=== PATIENT | female | born 1955 | race Caucasian/White ===

== ENCOUNTER 2021-03-26 09:40 | Outpatient (REF) | payer MEDICARE, MEDICAID, SELFPAY ==
--- NOTE | ~2021-03-26 | MM_ITS ---
EXAMINATION: MM SCREENING DIGITAL BREAST TOMOSYNTHESIS, BILATERAL CLINICAL INFORMATION: Screening. Asymptomatic. The lifetime risk of breast cancer based on the Tyrer-Cuzick Model is 5%. COMPARISON: Mammography: 08/11/2018, 07/10/2017, 04/21/2016 TECHNIQUE: Digital breast tomosynthesis is performed in both the craniocaudal and mediolateral oblique views along with computer-aided detection (CAD). Synthesized 2D images are generated from the tomosynthesis. Additional left CC view is provided. FINDINGS: There are scattered areas of fibroglandular density (ACR BI-RADS breast composition Category b). There are no significant masses, abnormal calcifications, or other abnormalities. Breast tissue composition borders on predominantly fatty. Background stromal markings and scattered benign round and rim calcifications are stable. The axilla are stable. Skin contours are smooth. No significant changes. MM/MM tomosynthesis screening BI IMPRESSION: No mammographic evidence of malignancy. ASSESSMENT: BI-RADS 2: Benign RECOMMENDATION: Routine annual mammography screening. This patient's information was entered into a reminder system with a target due date for their next mammogram.
== END 2021-03-26 09:41 | disposition home or self-care (01) ==
LOC: HO.MAMMO 09:40
PROVIDERS: PCP Internal Medicine; Visit Provider Internal Medicine
DX: Z12.31 Encounter for screening mammogram for malignant neoplasm of breast (principal)
CPT/HCPCS: 77063; 77067

== ENCOUNTER 2023-07-23 11:09 | Emergency (ER) | payer MEDICARE, MEDICAID, SELFPAY ==
--- NOTE | ~2023-07-23 | XR_ITS ---
EXAMINATION: XR CHEST 2 VIEW CLINICAL INFORMATION: Cough, shortness of breath, congestion COMPARISON: 10/12/2019 TECHNIQUE: PA and lateral views of the chest obtained. FINDINGS: Haziness at the right lung base is new since the prior study and likely reflects a small to moderate right pleural effusion and superimposed right base atelectasis or pneumonia. The left lung is clear. The cardiomediastinal silhouette is nonenlarged. XR/XR chest 2V IMPRESSION: Right pleural effusion and right base atelectasis or pneumonia. Follow-up is recommended to confirm clearing.
[2023-07-23 11:37] VITALS: BP 152/59; PULSE 74; RESP 20; TEMP 37.3; O2SAT 95; BMI 42.9
--- NOTE | 2023-07-23 11:37 | ED.GENADULT ---
HPI - General Adult General Chief complaint: General Medical Stated complaint: fever bs high Time Seen by Provider: 07/23/23 14:06 Source: patient Mode of arrival: ambulatory Limitations: no limitations History of Present Illness HPI narrative: Patient comes to the emergency room complaining of couple of days of coughing. Patient does have oxygen at home, usually uses oxygen as needed and at bedtime with her CPAP. Patient denies any fever. Patient states that when she wears her oxygen, shortness of breath resolves and feels better. However, patient still coughing quite a bit. Related Data Previous Rx's Medication Instructions Recorded levofloxacin 500 mg tablet 500 mg PO DAILY #9 tabs 07/23/23 prednisone 50 mg tablet 50 mg PO DAILY #4 tabs 07/23/23 Allergies Allergy/AdvReac Type Severity Reaction Status Date / Time oxycodone [OXYCODONE] AdvReac Unknown VOMITING Unverified 08/02/20 14:40 Pt states no known allergy to Allergy Unknown Uncoded 09/22/17 00:00 Review of Systems Review of Systems: Constitutional : No Weight loss, No Fever, No Chills, No Night Sweats, No Fatigue, No Malaise ENT/Mouth : No Hearing loss, No Ear Pain, No Nasal Congestion, No Sinus Pain, No Hoarseness, No sore throat, No Rhinorrhea, No Swallowing Difficulty Eyes: No Eye Pain, No Swelling, No Redness, No Foreign Body, No Discharge, No Vision Changes Cardiovascular : No Chest Pain, No SOB, No Dyspnea on Exertion, No Orthopnea, No Edema, No Palpitations Respiratory : complaining of cough, mild sputum production, chronic wheezing Gastrointestinal : No Nausea, No Vomiting, No Diarrhea, No Constipation, No abdominal Pain, No Hematochezia, No Melena Genitourinary : no irregular bleeding, No Dysuria, No Urinary Frequency, No Hematuria, No Urinary Incontinence, No Urgency, No Flank Pain, No Urinary Flow Changes, No Hesitancy Musculoskeletal : No joint pain, No Myalgias, No Joint Swelling Skin : No Skin Lesions, No rash Neuro : No Weakness, No Numbness, No Paresthesias, No Loss of Consciousness, No Dizziness, No Headache Psych : No Anxiety/Panic, No Depression, No SI/HI/AH/VH, No Social Issues, Heme/Lymph: No Bruising, No Bleeding,No Lymphadenopathy Endocrine : No Polyuria, No Polydipsia, No Temperature Intolerance [facility] Past Medical History Medical History (Updated 07/24/23 @ 00:01 by Background Babita) COPD with asthma Physical Exam ED Vital Signs: Vital Signs - 24 hr 07/23/23 11:37 07/23/23 14:08 Temperature 99.1 F 98.8 F Pulse Rate 74 75 Respiratory Rate 20 14 Blood Pressure 152/59 H 152/77 H Pulse Oximetry 95 4 L Oxygen Delivery Method Nasal Cannula Nasal Cannula BMI result Body Mass Index 42.9 HENOH Other: Appearance: Alert. Oriented X3. No acute distress. Eyes: Pupils equal, round and reactive to light. ENT: Pharynx normal. Neck: Normal inspection. Neck supple. No lymph nodes noted. No crepitus CVS: Normal heart rate and rhythm. Pulses normal. Normal S1 and S2 Respiratory: No respiratory distress, speaking full sentences, occasional coughing, mild bilateral wheezing with good air movement, oxygen saturation 96% on 3 L Abdomen: Soft and nontender. No rigidity. No distention. Skin: Skin warm and dry. Normal skin color. Normal skin turgor. Extremities: No lower extremity edema. No Lacerations. No Rash Neuro: Oriented X 3. No motor deficit. No sensory deficit. Moving all extremities. No slurred speech. CN 2 through 12 grossly intact Psych: calm, cooperative, normal affect Course Course Course Narrative: KANDY 11:40am 68yoF with a PMHx of COPD on 3L NC oxygen who is presenting to the ED with c/o of fevers up to 102.7, sweats, coughs with sputum, elevated glucose levels above 200, urine is concentrated since Thursday continues to worsen. Reports her ex daughter in-law who still lives with her has similar symptoms although her symptoms have improved. 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 Denies any recent travel. On exam patient is alert oriented x3. Still on her 3 L of nasal cannula oxygen. Otherwise all other vitals are within normal limits. Lungs clear to auscultation just diminished. No wheezes rales or rhonchi. No lower extremity edema or calf tenderness. Patient stable to go back to the waiting room to be even the ED. Plan: Labs, chest x-ray, COVID/RSV/flu swab ordered at this time. Medications Administered Discontinued Medications Generic Name Dose Route Start Last Admin Trade Name Masha PRN Reason Stop Dose Admin Levofloxacin 500 mg 07/23/23 14:19 07/23/23 14:34 Levofloxacin 500 Mg Tablet PO 07/23/23 14:20 500 mg ONCE ONE Administration Prednisone 60 mg 07/23/23 14:19 07/23/23 14:34 Prednisone 20 Mg Tablet PO 07/23/23 14:20 60 mg ONCE ONE Administration Medical Decision Making Medical Decision Making [facility] Narrative: -I discussed the labs with the patient, patient's blood cell count 14.3, likely secondary to pneumonia, -my interpretation of chest x-ray: Atelectasis versus pneumonia versus small pleural effusion in the right lower lobe. Given the patient's symptoms, we will go ahead and treat as pneumonia. Sepsis not suspected. -the emergency room, patient given 1st dose of prednisone and Levaquin -patient's lab stable. Patient feeling well, discussed with the patient admission to the hospital versus discharge. Patient want to go home, has oxygen there, states that if anything changes or worsens, she will return to the emergency room. -discussed with the patient that she will be on prednisone and her glucose will be higher for the next few days Differential Diagnosis Differential Diagnoses: The differential diagnosis associated with the presentation includes (Asthma, chronic lung disease, pleural effusion, atelectasis) Admission/Observation Consideration of admission/observation: Escalation of care including admission/observation considered Lab Data [facility] Lab Attestation statement: I reviewed the patient's lab results. 07/23/23 11:50 07/23/23 11:50 Labs: Lab Results 07/23/23 Range/Units 11:50 WBC 14.3 H (4.8-10.8) X10*3/uL RBC 3.82 L (4.20-5.50) X10*6/uL Hgb 11.4 L (12.0-16.0) g/dl Hct 35.3 L (37.0-47.0) % MCV 92.4 (80.0-98.0) fL MCH 29.8 (27.0-33.0) pg MCHC 32.3 (31.0-35.0) g/dl RDW 12.6 (11.0-16.0) % Plt Count 401 H (160-400) X10*3/uL MPV 9.8 (9.4-12.3) fL Immature Gran % (Auto) 2.2 H (0.0-0.4) % Neut % (Auto) 71.3 (45-73) % Lymph % (Auto) 17.1 L (20-40) % Bullock % (Auto) 7.1 (2-11) % Eos % (Auto) 1.7 (0-4) % Baso % (Auto) 0.6 (0-2) % Lymph # (Auto) 2.4 (1.2-4.9) X10*3/uL Bullock # (Auto) 1.0 (0.1-1.2) X10*3/uL Eos # (Auto) 0.2 (0.0-0.4) X10*3/uL Baso # (Auto) 0.1 (0.0-0.2) X10*3/uL Abs Immat Gran (auto) 0.32 H (0.00-0.03) X10*3/uL Absolute Neuts (auto) 10.2 H (2.0-8.3) x10*3/uL Absolute Nucleated RBC 0.000 (0.0-0.012) X10*3/uL Nucleated RBC % (auto) 0.0 (0.0-0.2) /100WBC Sodium 137 (135-145) mmol/L Potassium 3.5 (3.3-5.1) mmol/L Chloride 100 (96-108) mmol/L Carbon Dioxide 31 H (22-29) mmol/L Anion Gap 10 L (12-20) BUN 8 L (9-16) mg/dL Creatinine 0.65 (0.5-1.4) mg/dL Estim Creat Clear Calc 103.6 Estimated GFR > 60 Random Glucose 117 H (60-115) mg/dL Calcium 9.9 (8.4-10.2) mg/dL Magnesium 1.9 (1.6-2.6) mg/dL Total Bilirubin 0.4 (0.0-1.0) mg/dL AST 27 (5-31) U/L ALT 50 H (0-31) U/L Alkaline Phosphatase 156 H (39-117) U/L B-Natriuretic Peptide 41 (<100) pg/mL Total Protein 7.2 (6.5-8.0) g/dL Albumin 3.5 (3.5-5.0) g/dL Influenza Type A (PCR) NEGATIVE (Negative) Influenza Type B (PCR) NEGATIVE (Negative) RSV RNA Qual (PCR) NEGATIVE (Negative) SARS-CoV-2 RNA (RT-PCR) NEGATIVE (Negative) Independent Interpretation I performed an independent interpretation of an: Plain X-Ray Radiology Impression Discussion of test interpretation with radiology: I have reviewed the radiologist's reading. Radiologist Impression: FINDINGS: Haziness at the right lung base is new since the prior study and likely reflects a small to moderate right pleural effusion and superimposed right base atelectasis or pneumonia. The left lung is clear. The cardiomediastinal silhouette is nonenlarged. XR/XR chest 2V IMPRESSION: Right pleural effusion and right base atelectasis or pneumonia. Follow-up is recommended to confirm clearing. Critical Care Time Critical Care Time Critical Care Time: Yes Total Critical Care Time: 45 Attestation: I have personally provided critical care time. Time includes review of lab data, radiology results, discussion with consultants, and monitoring for potential decompensation. Intervention performed as documented. Discharge Plan Discharge Clinical Impression: Pneumonia Patient Disposition: Home, Self-Care Instructions: Pneumonia (ED) Prescriptions: New levofloxacin 500 mg tablet 500 mg PO DAILY Qty: 9 0RF prednisone 50 mg tablet 50 mg PO DAILY Qty: 4 0RF Interventions: ED Discharge Assessment Last Done: 07/23/23 14:37 Discharge Date/Time: 07/23/23 14:38
[2023-07-23 11:59] LABS: MANUAL DIFF FLAG NO
[2023-07-23 12:09] LABS: Basophils Absolute Auto 0.1 X10*3/uL (0.0-0.2); Basophils Percent Auto 0.6 % (0-2); Eosinophils Absolute Auto 0.2 X10*3/uL (0.0-0.4); Eosinophils Percent Auto 1.7 % (0-4); Hematocrit 35.3 % (37.0-47.0); Hemoglobin 11.4 g/dl (12.0-16.0); Imm Gran Abs Auto 0.32 X10*3/uL (0.00-0.03); Imm Gran Pct Auto 2.2 % (0.0-0.4); Lymphocytes Absolute Auto 2.4 X10*3/uL (1.2-4.9); Lymphocytes Percent Auto 17.1 % (20-40); Mean Corpuscular HGB Conc 32.3 g/dl (31.0-35.0); Mean Corpuscular Hemoglobin 29.8 pg (27.0-33.0); Mean Corpuscular Volume 92.4 fL (80.0-98.0); Mean Platelet Volume 9.8 fL (9.4-12.3); Monocytes Percent Auto 7.1 % (2-11); Neutrophils Absolute Auto 10.2 x10*3/uL (2.0-8.3); Neutrophils Percent Auto 71.3 % (45-73); Platelet Count 401 X10*3/uL (160-400); Red Blood Count 3.82 X10*6/uL (4.20-5.50); Red Cell Distribution Width 12.6 % (11.0-16.0); White Blood Count 14.3 X10*3/uL (4.8-10.8)
[2023-07-23 12:18] LABS: Alanine Aminotransferase 50 U/L (0-31); Albumin Level 3.5 g/dL (3.5-5.0); Alkaline Phosphatase 156 U/L (39-117); Anion Gap 10 (12-20); Aspartate Amino Transferase 27 U/L (5-31); Bilirubin Total 0.4 mg/dL (0.0-1.0); Blood Urea Nitrogen 8 mg/dL (9-16); Calcium 9.9 mg/dL (8.4-10.2); Carbon Dioxide 31 mmol/L (22-29); Chloride 100 mmol/L (96-108); Creatinine Clr Calc Pharmacy 103.6; Estimated Glomerular Filt Rate > 60; Glucose Random 117 mg/dL (60-115); Magnesium 1.9 mg/dL (1.6-2.6); Potassium 3.5 mmol/L (3.3-5.1); Sodium 137 mmol/L (135-145); Total Protein 7.2 g/dL (6.5-8.0)
[2023-07-23 12:23] LABS: B Type Natriuretic Peptide 41 pg/mL (<100)
[2023-07-23 12:40] LABS: Influenza A PCR NEGATIVE (Negative); Influenza B PCR NEGATIVE (Negative); Resp Syncy Virus RNA Qual PCR NEGATIVE (Negative); SARS COV2 PCR INHOUSE NEGATIVE (Negative)
[2023-07-23 14:08] VITALS: BP 152/77; PULSE 75; RESP 14; TEMP 37.1; O2SAT 4
[2023-07-23] MEDS: predniSONE 20 MG TABLET 60 MG PO (14:34)
[2023-07-23] MEDS: levoFLOXacin 500 MG TABLET PO (14:34)
== END 2023-07-23 14:38 | disposition home or self-care (01) ==
PROVIDERS: Physician Assistant Medical; Emergency Provider Emergency Medicine; PCP Internal Medicine
DX: J18.9 Pneumonia, unspecified organism (principal); R50.9 Fever, unspecified; R06.02 Shortness of breath; Z20.822 Contact with and (suspected) exposure to COVID-19; Z20.828 Contact with and (suspected) exposure to other viral communicable diseases; Z79.899 Other long term (current) drug therapy
CPT/HCPCS: 0241U; 36415; 71046; 80053; 83735; 83880; 85025; 99283

== ENCOUNTER 2023-08-17 18:40 | Outpatient (REF) | payer MEDICARE, MEDICAID, SELFPAY | END 2023-08-17 18:41 | disposition home or self-care (01) | LOC: HO.HHCLNP 18:40 | PROVIDERS: Visit Provider Internal Medicine | DX: R39.9 Unspecified symptoms and signs involving the genitourinary system (principal) | CPT/HCPCS: 87086 ==

== ENCOUNTER 2023-10-13 09:15 | Outpatient (REF) | payer MEDICARE, MEDICAID, SELFPAY ==
--- NOTE | ~2023-10-13 | MM_ITS ---
EXAMINATION: MM SCREENING DIGITAL BREAST TOMOSYNTHESIS, BILATERAL CLINICAL INFORMATION: Screening. Asymptomatic. COMPARISON: Mammography: This study is compared with prior exams dating back to 2016. TECHNIQUE: Digital breast tomosynthesis is performed in both the craniocaudal and mediolateral oblique views along with computer-aided detection (CAD). Synthesized 2D images are generated from the tomosynthesis. FINDINGS: The breasts are almost entirely fatty (ACR BI-RADS breast composition Category a). There are no significant masses, abnormal calcifications, or other abnormalities. Since the previous examination from 2020, left upper outer quadrant lymph nodes have decreased in size. It is likely that they were mildly reactive in 2020. Nonetheless, they are normal on the current study. MM/MM tomosynthesis screening BI IMPRESSION: No mammographic evidence of malignancy. ASSESSMENT: BI-RADS BI-RADS 1 - Negative RECOMMENDATION: Routine annual mammography screening. 1 year F/U This examination should not preclude the clinical evaluation of a suspicious palpable abnormality. This patient's information was entered into a reminder system with a target due date for their next mammogram.
== END 2023-10-13 09:16 | disposition home or self-care (01) ==
LOC: HO.MAMMO 09:15
PROVIDERS: PCP Internal Medicine; Visit Provider Internal Medicine
DX: Z12.31 Encounter for screening mammogram for malignant neoplasm of breast (principal)
CPT/HCPCS: 77063; 77067

== ENCOUNTER → 2023-10-13 09:30 | Outpatient (BNV) | payer MEDICARE, MEDICAID, SELFPAY | PROVIDERS: PCP Internal Medicine; Visit Provider Radiology Diagnostic Radiology | DX: Z12.31 Encounter for screening mammogram for malignant neoplasm of breast (principal) | CPT/HCPCS: 77063; 77067 ==

== ENCOUNTER 2024-01-07 10:16 | Outpatient (REF) | payer MEDICARE, MEDICAID, SELFPAY ==
--- NOTE | ~2024-01-07 | MM_ITS ---
EXAMINATION: BONE DENSITOMETRY CLINICAL INDICATION: Menopause, patient on prednisone on and off. COMPARISON: This is the patient's baseline examination. TECHNIQUE: Using a [employer] DXA System (software version: 13.1) manufactured by [employer], dual-energy x-ray absorptiometry was performed of the lumbar spine and left hip. The images are of good technical quality. Summary results are attached. FINDINGS: AP SPINE L1-L4: BMD 1.194 g/cm2, Z-score 0.6, T-score 0.1, normal. LEFT FEMUR, NECK: BMD 0.912 g/cm2, Z-score -0.1, T-score -0.9, normal. LEFT FEMUR, TOTAL: BMD 1.091 g/cm2, Z-score 1.2, T-score 0.7, normal. IDENTIFIED RISK FACTORS: Early menopause, secondary osteoporosis, history of fracture (adult), parental hip fracture, hysterectomy, bilateral oophorectomy. HISTORY OF FRACTURE: Humerus. MEDICATIONS: Vitamin D. MM/XR DEXA axial skeleton IMPRESSION: 1. DIAGNOSIS: Normal bone density based on the lowest T-score value of -0.9 in the femoral neck applying World Health Organization criteria. 2. 10-YEAR FRACTURE RISK PREDICTION, FRAX: According to the guidelines, FRAX calculation should only be performed on patients in the osteopenia bone density category. Therefore, FRAX was not performed on this patient. 3. Treatment Recommendations: NOF guidelines recommend consideration for treatment in postmenopausal women and men age 50 and older presenting with the following: -A hip or vertebral (clinical or morphometric) fracture. -T-score less than or equal to -2.5 at the femoral neck or spine after appropriate evaluation to exclude secondary causes. -Low bone mass at the hip or spine and a 10-year fracture probability by FRAX of greater than or equal to 3% for hip fracture or greater than or equal to 20% for major osteoporotic fracture based on the [place] adapted WHO algorithm. 4. Other Recommendations: All treatment decisions require clinical judgment and consideration of individual patient factors, including patient preferences, comorbidities, previous drug use, risk factors not captured in the FRAX model (e.g. frailty, falls, vitamin D deficiency, increased bone turnover, interval significant decline in bone density) and possible under or overestimation of fracture risk by FRAX. FUTURE SCAN RECOMMENDATION: People with diagnosed cases of osteoporosis or at high risk for fracture should have regular bone mineral density tests. For patients eligible for Medicare, routine testing is allowed once every 2 years. The testing frequency can be increased to one year for patients who have rapidly progressing disease, those who are receiving or discontinuing medical therapy to restore bone mass, or have additional risk factors.
== END 2024-01-07 10:17 | disposition home or self-care (01) ==
LOC: HO.MAMMO 10:16
PROVIDERS: PCP Internal Medicine; Visit Provider Internal Medicine
DX: Z13.820 Encounter for screening for osteoporosis (principal); Z78.0 Asymptomatic menopausal state
CPT/HCPCS: 77080

== ENCOUNTER 2024-01-20 12:16 | Outpatient (REF) | payer MEDICARE, MEDICAID, SELFPAY ==
--- NOTE | ~2024-01-20 | XR_ITS ---
EXAMINATION: XR SHOULDER, RIGHT CLINICAL INFORMATION: Chronic shoulder pain Patient states prior injury of torn rotator cuff years ago. No recent injury in the last 6 months. COMPARISON: None available. TECHNIQUE: AP external rotation, Grashey, scapular Y, and axillary views of the right shoulder. FINDINGS: The bones intact no fracture. Glenohumeral and acromioclavicular alignment is anatomic with normal joint space. No abnormal soft tissue calcifications. Mild cortical irregularity along the lateral aspect of the greater tuberosity of the humerus is likely related related to rotator cuff disease. XR/XR shoulder RT min 2V IMPRESSION: 1. No acute abnormality. 2. Mild cortical irregularity along the lateral aspect of the greater tuberosity of the humerus is likely related to rotator cuff disease.
== END 2024-01-20 12:17 | disposition home or self-care (01) ==
LOC: HO.HHCX 12:16
PROVIDERS: Visit Provider Internal Medicine
DX: M25.511 Pain in right shoulder (principal); G89.29 Other chronic pain; J44.9 Chronic obstructive pulmonary disease, unspecified
CPT/HCPCS: 36415; 73030; 80048; 80076; 85025

== ENCOUNTER 2024-01-20 12:38 | Outpatient (REF) | payer MEDICARE, MEDICAID, SELFPAY ==
[2024-01-20 16:08] LABS: MANUAL DIFF FLAG NO
[2024-01-20 16:10] LABS: Basophils Absolute Auto 0.1 X10*3/uL (0.0-0.2); Eosinophils Absolute Auto 0.5 X10*3/uL (0.0-0.4); Eosinophils Percent Auto 3.9 % (0-4); Hematocrit 40.5 % (37.0-47.0); Hemoglobin 12.9 g/dl (12.0-16.0); Imm Gran Abs Auto 0.09 X10*3/uL (0.00-0.03); Imm Gran Pct Auto 0.8 % (0.0-0.4); Lymphocytes Absolute Auto 3.2 X10*3/uL (1.2-4.9); Lymphocytes Percent Auto 26.4 % (20-40); Mean Corpuscular HGB Conc 31.9 g/dl (31.0-35.0); Mean Corpuscular Hemoglobin 29.4 pg (27.0-33.0); Mean Corpuscular Volume 92.3 fL (80.0-98.0); Mean Platelet Volume 10.2 fL (9.4-12.3); Monocytes Absolute Auto 0.9 X10*3/uL (0.1-1.2); Monocytes Percent Auto 7.6 % (2-11); Neutrophils Absolute Auto 7.2 x10*3/uL (2.0-8.3); Neutrophils Percent Auto 60.3 % (45-73); Platelet Count 451 X10*3/uL (160-400); Red Blood Count 4.39 X10*6/uL (4.20-5.50); Red Cell Distribution Width 13.8 % (11.0-16.0)
[2024-01-20 16:21] LABS: Alanine Aminotransferase 12 U/L (0-31); Albumin Level 4.4 g/dL (3.5-5.0); Alkaline Phosphatase 123 U/L (39-117); Anion Gap 13 (12-20); Aspartate Amino Transferase 15 U/L (5-31); Bilirubin Direct 0.2 mg/dL (0.0-0.5); Bilirubin Total 0.2 mg/dL (0.0-1.0); Blood Urea Nitrogen 16 mg/dL (9-16); Calcium 10.5 mg/dL (8.4-10.2); Carbon Dioxide 29 mmol/L (22-29); Chloride 100 mmol/L (96-108); Estimated Glomerular Filt Rate > 60; Glucose Random 152 mg/dL (60-115); Potassium 4.3 mmol/L (3.3-5.1); Sodium 138 mmol/L (135-145)
== END 2024-01-20 12:39 | disposition home or self-care (01) ==
LOC: HO.HHCL 12:38
PROVIDERS: Visit Provider Internal Medicine
DX: Z13.89 Encounter for screening for other disorder (principal)
CPT/HCPCS: 36415; 80048; 80076; 85025

== ENCOUNTER 2024-03-04 10:24 | Outpatient (AMB) | payer MEDICARE, MEDICAID, SELFPAY ==
[2024-03-04 10:33] VITALS: BMI 42.9
--- NOTE | 2024-03-04 10:33 | MHC.OFFVIS ---
Vital Signs 03/04/24 10:33 Height 5 ft 4 in Weight 250 lb BMI 42.9 Intake Visit Reasons: N/P Right shoulder/ Rotator cuff disorder Intake Note: Billie is a 68 year old right hand dominant female who presents today as a new patient with complaints of right shoulder pain. Rudy reports that she has had pain in the shoulder for about 10 years now, in the past she was told that she has a small RTC. This pain recently increased as September. He pain is felt all the time, pain is felt at the top of shoulder and radiates to the neck. She takes 800 Ibuprofen, 650 Tylenol, Topical pain cream, and lidocane patches. Allergies oxycodone [OXYCODONE] Adverse Reaction (Unknown, Unverified 03/04/24 10:36) VOMITING Pt states no known allergy to Allergy (Unknown, Uncoded 03/04/24 10:36) Vomiting HPI HPI N/P Right shoulder/ Rotator cuff disorder: Details: 68-year-old right hand dominant female who presents in the office today, as a new patient, for an evaluation of right shoulder pain. Patient reports pain for about 10 years. She states she was told in the past that she has a rotator cuff tear. She states the pain has began to increase since 09/2023. She reports chronic pain at the top of her shoulder radiating to her neck. She states she has been taking Ibuprofen 800 mg , Tylenol 650 mg, topical pain cream, and lidocaine patches. Patient has a significant medical history of diabetes mellitus. FORMERLY [facility] Medical History (Updated 03/04/24 @ 11:09 by Roslyn Desir) COPD with asthma Surgical History (Updated 03/04/24 @ 10:38 by Trina Nunn CMA) H/O: section History of hysterectomy (~2019) Social History (Updated 03/04/24 @ 10:39 by Trina Nunn CMA) e-Cigarette/Vaping Use: Currently Using Current occupational status: employed Current occupation: [employer] Review of Systems Const All systems reviewed & are unremarkable except as noted in HPI and below Physical Exam Vital Signs: BMI result Body Mass Index 42.9 Const General: cooperative, healthy appearing and no acute distress Resp Effort & Inspection: normal respiratory effort and able to speak in complete sentences Cardio Rate: regular rate Peripheral pulses: Peripheral pulses 2+ throughout GI Palpation (GI): Soft to palpation Skin Lesions: no lesions Rashes: no rashes Extrem Other: Right shoulder: Normal to inspection. No ecchymosis, erythema, or edema. Full shoulder ROM in all planes. Pain along the impingement arc. Negative cross-body reach. 3/5 strength with empty can. Negative drop arm. NVI. Office Procedures Joint Injection/Drain Joint Injection/Drain Primary Site: right shoulder Prep: site was prepped using aseptic technique, ethochloride spray was applied and injection warnings given Injected: 40 mg of, DepoMedrol, with 8 mL of (2% plain lido ) and in the subcromial space Approach Used: posterolateral Procedure: The patient tolerated the procedure well, but had some pain with the injection and there was some relief with the local anesthesia Coding 66116 - Large joint Procedure code (CPT) selection complete Assessment & Plan Assessment & Plan (1) Right rotator cuff tear: Code(s): M75.101 - Unspecified rotator cuff tear or rupture of right shoulder, not specified as traumatic Category: Medical Qualifiers: Rotator cuff tear extent: unspecified tear extent Rotator cuff tear trauma status: unspecified whether traumatic Qualified Code(s): M75.101 - Unspecified rotator cuff tear or rupture of right shoulder, not specified as traumatic (2) Painful arc syndrome of right shoulder: Code(s): M75.101 - Unspecified rotator cuff tear or rupture of right shoulder, not specified as traumatic Category: Medical (3) Diabetes mellitus: Code(s): E11.9 - Type 2 diabetes mellitus without complications Category: Medical Plan Ms. Monson is a 68-year-old right hand dominant female who presents in the office today, as a new patient, for an evaluation of right shoulder pain. Patient reports pain for about 10 years. She states she was told in the past that she has a rotator cuff tear. She states the pain has began to increase since 09/2023. She reports chronic pain at the top of her shoulder radiating to her neck. She states she has been taking Ibuprofen 800 mg , Tylenol 650 mg, topical pain cream, and lidocaine patches. Patient has a significant medical history of diabetes mellitus. The patient was offered a cortisone injection in the right shoulder with 40 mg of DepoMedrol. The patient was explained the risk, benefits, and alternatives to receiving this injection. After receiving consent for the injection, the patient had the procedure done while in the office today. The patient tolerated the procedure well with no complications. Due to the patient?s history of diabetes, they were instructed to monitor her blood glucose level. The patient was informed that they could see a rise in their numbers and if the numbers became too high, they were instructed to call their PCP. The patient was also informed that they could have facial flushing as a side effect of the injection, but this will pass. Follow up will be PRN, or sooner if needed. X-rays of the right shoulder, obtained on 01/25/2024, revealed: 1.) No acute abnormality 2.) Mild cortical irregularity along the lateral aspect of the greater tuberosity of the humerus is likely related to rotator cuff disease. Medications: Discontinued levofloxacin Discontinued Reason: Patient no longer taking 500 mg PO DAILY 9 tabs 0RF prednisone Discontinued Reason: Patient no longer taking 50 mg PO DAILY 4 tabs 0RF Patient Instructions: Scribed by Roslyn Desir medical technologist prn, for Kanawl Freeman PA-C on 03/04/2024 at 10:29 am, EST.
== END 2024-03-04 11:19 | disposition home or self-care (01) ==
PROVIDERS: PCP Internal Medicine; Visit Provider Physician Assistant
DX: M75.101 Unspecified rotator cuff tear or rupture of right shoulder, not specified as traumatic (principal); E11.9 Type 2 diabetes mellitus without complications
CPT/HCPCS: 20610; 99204

== ENCOUNTER → 2024-03-04 10:24 | Outpatient (BNVA) | payer MEDICARE, MEDICAID, SELFPAY | PROVIDERS: PCP Internal Medicine; Visit Provider Physician Assistant | DX: M75.101 Unspecified rotator cuff tear or rupture of right shoulder, not specified as traumatic (principal); E11.9 Type 2 diabetes mellitus without complications | CPT/HCPCS: 20610; 99202; J1010 ==

== ENCOUNTER 2024-03-10 18:25 | Emergency (ER) | payer MEDICARE, MEDICAID, SELFPAY ==
--- NOTE | ~2024-03-10 | CT_ITS ---
EXAMINATION: CT CHEST WITH CONTRAST CLINICAL INFORMATION: Cough. Abnormal chest x-ray. COMPARISON: Correlation made with chest x-ray performed on the same day. TECHNIQUE: Multidetector volumetric CT imaging of the chest was obtained after the administration of 65 mL of Omnipaque 350 intravenous contrast without immediate adverse reactions. Axial MIP volume rendering provided. Sagittal and coronal reformatted images were obtained. This CT examination was performed using dose optimization techniques as appropriate, variously including the following: *Automated exposure control *Adjustment of mA and/or kV according to patient size (this includes techniques or standardized protocols for targeted exams where dose is matched to indication/reason for exam; i.e. extremities or head) *Use of iterative reconstruction technique DLP: 736 mGy-cm FINDINGS: METAL LOADER: There is a right lower lobe opacity. LUNGS: There is a 10.5 x 6.7 x 5.5 cm right lower lobe mass extending to the right infrahilar region. There is mild bibasilar atelectatic change. MEDIASTINUM: The heart is within normal limits for size. There is moderate coronary artery calcifications. There are no significantly enlarged mediastinal lymph nodes. PLEURA: There is no pleural effusion. No pleural mass or thickening. AXILLA: No lymphadenopathy. UPPER ABDOMEN: There are 2 cm fatty density left adrenal nodule. OSSEOUS STRUCTURES: Unremarkable. CT/CT chest w IV con IMPRESSION: 10.5 x 6.7 x 5.5 cm right lower lobe mass extending to the right infrahilar region. This is highly suspicious for malignancy. The mass appears to be amenable to percutaneous biopsy. Fleischner guidelines were followed.
--- NOTE | ~2024-03-10 | XR_ITS ---
EXAMINATION: XR CHEST CLINICAL INFORMATION: Cough. COMPARISON: Chest radiograph dated 07/23/2023. TECHNIQUE: 2 views of the chest were obtained. FINDINGS: The cardiac silhouette is normal in size. There is a rounded, dense opacity at the right lung base measuring at least 7.2 x 7.9 cm. This opacity was seen on chest radiograph dated 07/23/2023 at which time it measured 6.4 x 6.7 cm. There is a right pleural effusion. The left lung is clear. There is no left pleural effusion. No pneumothorax. No acute osseous abnormality. XR/XR chest 2V IMPRESSION: There is an enlarging, rounded, dense opacity at the right lung base measuring at least 7.2 x 7.9 cm. This opacity was seen on chest radiograph dated 07/23/2023 at which time it measured 6.4 x 6.7 cm. An enlarging mass cannot be excluded. Further evaluation with chest CT is recommended. This critical result was discussed with Austin BERNSTEIN at 10:06 PM on 03/10/2024 and it was ascertained that the content and urgency of the report was understood at the time of direct communication.
[2024-03-10 18:44] VITALS: BP 157/67; PULSE 91; RESP 18; TEMP 36.5; O2SAT 92; BMI 40.7
--- NOTE | 2024-03-10 18:51 | ED_ITS ---
HPI - General Adult General Chief complaint: General Medical Stated complaint: coughing up blood Time Seen by Provider: 03/10/24 22:06 Source: patient, RN notes reviewed and old records reviewed Mode of arrival: ambulatory Limitations: no limitations History of Present Illness HPI narrative: 68-year-old female with past medical history significant for diabetes, COPD, rotator cuff injury presents for evaluation of ?coughing up blood. ? Patient reports right flank pain and cough that has been chronic for several months now She was seen here last July, several months ago for similar symptoms and was told she had pneumonia She completed 2 courses of antibiotics but ?it never really went away. ? Patient's pain has persisted in her right flank Today she noticed that she was ?coughing up blood. ? This started a few hours prior to arrival and has been persistent She has not on any anticoagulation Denies any fevers or chills Related Data Home Medications ?Medication ?Instructions ?Recorded ?Confirmed dulaglutide 4.5 mg/0.5 mL mg subcut 03/04/24 subcutaneous pen injector (Lighting by LED) insulin aspart U-100 100 unit/mL subcut 03/04/24 subcutaneous solution (Novolog U-100 Insulin aspart) levothyroxine 137 mcg tablet 137 mcg PO DAILY 03/04/24 lisinopril 5 mg tablet mg PO 03/04/24 tiotropium bromide 18 mcg capsule inhalation 03/04/24 with inhalation device (Spiriva with HandiHaler) Allergies Allergy/AdvReac Type Severity Reaction Status Date / Time oxycodone [OXYCODONE] AdvReac Unknown VOMITING Verified 03/10/24 18:45 Review of Systems 2 Constitutional: Constitutional: Denies body ache(s), Denies chills and Denies fever(s) Cardiovascular: Cardiovascular: Denies chest pain and Reports dyspnea Respiratory: Respiratory: Reports cough, Reports hemoptysis and Reports dyspnea Gastrointestinal: Gastrointestinal: Denies abdominal pain, Denies nausea and Denies vomiting Musculoskeletal: Musculoskeletal: Reports back pain Integumentary/Breasts: Skin/Breast: Denies rash PMF Past Medical History Medical History (Updated 03/11/24 @ 00:28 by Austin Valadez) COPD with asthma Surgical History (Updated 03/04/24 @ 10:38 by Trina uNnn CMA) H/O: section History of hysterectomy (~2019) Social History Social History (Updated 03/04/24 @ 10:39 by Trina Nunn CMA) e-Cigarette/Vaping Use: Currently Using Advance Directives: No Advance Directives Information Provided: No Do you have a plan to hurt others: No Plan Current occupational status: employed Current occupation: [employer] Physical Exam ED Vital Signs: Vital Signs - 24 hr 03/10/24 18:44 03/10/24 20:38 03/11/24 01:38 Temperature 97.7 F 98.1 F 98.7 F Pulse Rate 91 74 68 Respiratory Rate 18 18 18 Blood Pressure 157/67 H 137/55 L 144/82 H Pulse Oximetry 92 94 93 Oxygen Delivery Method Room Air Room Air Room Air 03/11/24 02:27 Temperature 97.3 F Pulse Rate 95 Respiratory Rate 16 Blood Pressure 117/67 Pulse Oximetry 93 Oxygen Delivery Method Room Air BMI result Body Mass Index 40.7 Const General: healthy appearing, comfortable, no acute distress, alert and awake Nutritional Appearance: well nourished Orientation/consciousness: patient oriented x3 HENMT Head: Yes normocephalic and Yes atraumatic Eyes Eyelids: Yes eyelids normal Conjunctivae: conjunctivae normal Sclerae: sclerae normal Corneas: corneas normal Pupils: Equal, round and reactive pupils present EOM: EOMs intact bilaterally Neck Neck: Yes full ROM Resp Other: Diminished right lung base, but otherwise clear to auscultation Effort & Inspection: normal respiratory effort, able to speak in complete sentences, no audible wheezes and not labored Auscultation: clear to auscultation bilaterally Cardio Rate: regular rate Rhythm: regular rhythm GI Inspection: No distended Palpation (GI): Soft to palpation, not firm, nontender, no guarding and not rigid Back/Spine/Pelvis Other: No tenderness to the right thoracic paraspinous region or right flank Skin General skin exam: elasticity normal Neuro General: patient oriented x3 Cranial nerves: Yes Equal, round and reactive pupils present and Yes Bilaterally intact EOM present Cognition (Neuro): normal cognition Extrem Other: Moving all extremities well without any obvious deformities Course Course Course Narrative: This is a rapid medical exam: Additional HPI, ROS, PE not included below will be deferred to primary provider. Patient is a 68-year-old female presenting to the ED with complaint of coughing up small amount of blood after choking on a popcorn kernel earlier today. Plan: CXR Reevaluation(s) Reevaluation #1: Patient's CT scan shows a 10.5 x 6.7 x 5.5 cm right lower lobe mass extending into the right infrahilar region concerning for malignancy. I sent a message to Oncology, Dr. Salvador. The patient is hemodynamically stable Time: 02:52 Reevaluation #2: Discussed with oncology, Dr. Salvador recommends discharge since the patient is hemodynamically stable. I did discuss CT scan results with her including concern for cancer. I provided the patient with a copy of her CT scan to show to her finishing trimmer for follow-up as well Time: 02:59 Medications Administered Discontinued Medications Generic Name Dose Route Start Last Admin Trade Name Freq PRN Reason Stop Dose Admin Iohexol 85 ml 03/10/24 23:42 03/10/24 23:42 Iohexol 350 Mg/Ml 100 Ml Infus..Btl IV 03/10/24 23:43 85 ml ONCE ONE Administration Medical Decision Making Medical Decision Making [facility] Narrative: 68-year-old female with past medical history as documented above presents for evaluation of hemoptysis. She does have an emesis bag with blood-tinged sputum. Her chest x-ray shows a large right lower lobe mass. This was previously seen in July of 2023 but was diagnosed as pneumonia. It is more dense and slightly larger compared to then concerning for an enlarging mass. Patient does have a 27 pack year history of smoking but is not an active smoker. Plan for labs, CT scan with IV contrast to evaluate the mass Differential Diagnosis Differential Diagnoses: The differential diagnosis associated with the presentation includes Lung mass Lung cancer Hemoptysis Tuberculosis Admission/Observation Consideration of admission/observation: Escalation of care including admission/observation considered Consider admission due to large lung mass and hemoptysis Consult Healthcare Provider Management of the patient was discussed with: Efficiency Manager (oncology) Lab Data [facility] Lab Attestation statement: I reviewed the patient's lab results. Leukocytosis to 12.9 K. there is no left shift. The patient has a very mild anemia with a normal hematocrit but a slightly low hemoglobin of 11.6. Her baseline appears to be around 13 the PT and INR are within normal limits. Chemistries show a carbon dioxide of 31 which is likely related to her known COPD. Anion gap is just below normal at 9. BUN is elevated 21 creatinine of 0.69. Random glucose is slightly elevated in keeping with her history of known diabetes. 03/10/24 22:34 03/10/24 22:34 Labs: Lab Results 03/10/24 03/11/24 Range/Units 22:34 02:25 WBC 12.9 H (4.8-10.8) X10*3/uL RBC 3.91 L (4.20-5.50) X10*6/uL Hgb 11.6 L (12.0-16.0) g/dl Hct 37.1 (37.0-47.0) % MCV 94.9 (80.0-98.0) fL MCH 29.7 (27.0-33.0) pg MCHC 31.3 (31.0-35.0) g/dl RDW 13.5 (11.0-16.0) % Plt Count 393 (160-400) X10*3/uL MPV 9.4 (9.4-12.3) fL Immature Gran % (Auto) 0.5 H (0.0-0.4) % Neut % (Auto) 69.5 (45-73) % Lymph % (Auto) 20.8 (20-40) % Guadalupe % (Auto) 6.4 (2-11) % Eos % (Auto) 2.2 (0-4) % Baso % (Auto) 0.6 (0-2) % Lymph # (Auto) 2.7 (1.2-4.9) X10*3/uL [place]upe # (Auto) 0.8 (0.1-1.2) X10*3/uL Eos # (Auto) 0.3 (0.0-0.4) X10*3/uL Baso # (Auto) 0.1 (0.0-0.2) X10*3/uL Abs Immat Gran (auto) 0.07 H (0.00-0.03) X10*3/uL Absolute Neuts (auto) 9.0 H (2.0-8.3) x10*3/uL Absolute Nucleated RBC 0.000 (0.0-0.012) X10*3/uL Nucleated RBC % (auto) 0.0 (0.0-0.2) /100WBC PT 11.7 (11.1-13.3) SEC INR 1.0 (0.9-1.1) Sodium 139 (135-145) mmol/L Potassium 4.1 (3.3-5.1) mmol/L Chloride 103 (96-108) mmol/L Carbon Dioxide 31 H (22-29) mmol/L Anion Gap 9 L (12-20) BUN 20 H (9-16) mg/dL Creatinine 0.69 (0.5-1.4) mg/dL Estim Creat Clear Calc 94.7 Estimated GFR > 60 POC Glucose 135 H (60-115) mg/dL Random Glucose 139 H (60-115) mg/dL Calcium 9.9 (8.4-10.2) mg/dL Total Bilirubin 0.3 (0.0-1.0) mg/dL AST 11 (5-31) U/L ALT 10 (0-31) U/L Alkaline Phosphatase 97 (39-117) U/L Total Protein 7.9 (6.5-8.0) g/dL Albumin 4.2 (3.5-5.0) g/dL Lipase 11 (8-78) U/L Independent Interpretation I performed an independent interpretation of an: Plain X-Ray (Dense appearing round right lower lobe mass) Radiology Impression Discussion of test interpretation with radiology: I have reviewed the radiologist's reading. Radiologist Impression: IMPRESSION: There is an enlarging, rounded, dense opacity at the right lung base measuring at least 7.2 x 7.9 cm. This opacity was seen on chest radiograph dated 07/23/2023 at which time it measured 6.4 x 6.7 cm. An enlarging mass cannot be excluded. Further evaluation with chest CT is recommended. Discharge Plan Discharge Clinical Impression: Mass of right lung Patient Disposition: Home, Self-Care Instructions: Lung Cancer (DC) Additional Instructions: You have a large mass in your right lower lung which is concerning for cancer. It is important that you follow-up with Oncology Call the office of Dr. Salvador later today to schedule follow-up You may also follow-up with your finishing trimmer Prescriptions: No Action insulin aspart U-100 [Novolog U-100 Insulin aspart] 100 unit/mL solution subcut Trulicity 4.5 mg/0.5 mL pen injector subcut levothyroxine 137 mcg tablet 137 mcg PO DAILY lisinopril 5 mg tablet PO tiotropium bromide [Spiriva with HandiHaler] 18 mcg capsule, w/inhalation device inhalation Referrals: Pat Salvador MD [Physician] - (Large right lung mass concerning for malignancy) Print Language: Thai
[2024-03-10 20:38] VITALS: BP 137/55; PULSE 74; RESP 18; TEMP 36.7; O2SAT 94
--- NOTE | 2024-03-10 22:17 | ECG_ITS ---
Test Reason : PAIN Blood Pressure : / mmHG Vent. Rate : 073 BPM Atrial Rate : 073 BPM P-R Int : 158 ms QRS Dur : 072 ms QT Int : 406 ms P-R-T Axes : 069 044 033 degrees QTc Int : 447 ms Normal sinus rhythm Normal ECG When compared with ECG of 29-MAY-2015 07:07, No significant change was found Referred By: Austin Valadez Electronically Signed By:LINNETTE FLORES MD
[2024-03-10 22:38] LABS: MANUAL DIFF FLAG NO
[2024-03-10 22:39] LABS: Basophils Absolute Auto 0.1 X10*3/uL (0.0-0.2); Basophils Percent Auto 0.6 % (0-2); Eosinophils Absolute Auto 0.3 X10*3/uL (0.0-0.4); Eosinophils Percent Auto 2.2 % (0-4); Hematocrit 37.1 % (37.0-47.0); Hemoglobin 11.6 g/dl (12.0-16.0); Imm Gran Abs Auto 0.07 X10*3/uL (0.00-0.03); Imm Gran Pct Auto 0.5 % (0.0-0.4); Lymphocytes Absolute Auto 2.7 X10*3/uL (1.2-4.9); Lymphocytes Percent Auto 20.8 % (20-40); Mean Corpuscular HGB Conc 31.3 g/dl (31.0-35.0); Mean Corpuscular Hemoglobin 29.7 pg (27.0-33.0); Mean Corpuscular Volume 94.9 fL (80.0-98.0); Mean Platelet Volume 9.4 fL (9.4-12.3); Monocytes Absolute Auto 0.8 X10*3/uL (0.1-1.2); Monocytes Percent Auto 6.4 % (2-11); Neutrophils Percent Auto 69.5 % (45-73); Platelet Count 393 X10*3/uL (160-400); Red Blood Count 3.91 X10*6/uL (4.20-5.50); Red Cell Distribution Width 13.5 % (11.0-16.0); White Blood Count 12.9 X10*3/uL (4.8-10.8)
[2024-03-10 22:44] LABS: Prothrombin Time 11.7 SEC (11.1-13.3)
[2024-03-10 22:57] LABS: Alanine Aminotransferase 10 U/L (0-31); Albumin Level 4.2 g/dL (3.5-5.0); Alkaline Phosphatase 97 U/L (39-117); Anion Gap 9 (12-20); Aspartate Amino Transferase 11 U/L (5-31); Bilirubin Total 0.3 mg/dL (0.0-1.0); Blood Urea Nitrogen 20 mg/dL (9-16); Calcium 9.9 mg/dL (8.4-10.2); Carbon Dioxide 31 mmol/L (22-29); Chloride 103 mmol/L (96-108); Creatinine Clr Calc Pharmacy 94.7; Estimated Glomerular Filt Rate > 60; Glucose Random 139 mg/dL (60-115); Lipase 11 U/L (8-78); Potassium 4.1 mmol/L (3.3-5.1); Sodium 139 mmol/L (135-145); Total Protein 7.9 g/dL (6.5-8.0)
[2024-03-10] MEDS: iohexoL 350 MG/ML 100 ML INFUS..BTL 85 ML IV (23:42)
[2024-03-11 01:38] VITALS: BP 144/82; PULSE 68; RESP 18; TEMP 37.1; O2SAT 93
--- NOTE | 2024-03-11 02:24 | PC.NURSE ---
pt transfer from [facility] to room 10, verbal reported given by RN
[2024-03-11 02:27] VITALS: BP 117/67; PULSE 95; RESP 16; TEMP 36.3; O2SAT 93
--- NOTE | 2024-03-11 02:29 | MHC.EDTECH ---
THIS PCT JUST ASSUMED CARE OF PATIENT ,VITALS TAKEN AND BLOOD SUGAR CHECK ,RN AWARE OF RESULT OF 135 ,CALL THOMAS WITHIN PATIENT REACH .
[2024-03-11 02:41] LABS: Glucose, Whole Blood 135 mg/dL (60-115)
[2024-03-11 03:19] VITALS: BP 117/67; PULSE 95; RESP 16; TEMP 36.3; O2SAT 93
--- NOTE | 2024-03-11 11:07 | MHC.HEMONC ---
Pt was discussed with Dr Salvador when ED MD called her during the night. She planned to have our office make Onc Consult appointment for 1-2 weeks but when Kay GRIDER called pt to set up, she said she has a senior pensions administrator, Dr Smith at [facility] who she prefers to see first. Dr Salvador was advised.
== END 2024-03-11 03:21 | disposition home or self-care (01) ==
PROVIDERS: Physician Assistant; Emergency Provider Emergency Medicine; PCP Internal Medicine
DX: R04.2 Hemoptysis (principal); R91.8 Other nonspecific abnormal finding of lung field; E11.9 Type 2 diabetes mellitus without complications; R07.89 Other chest pain; R94.31 Abnormal electrocardiogram [ECG] [EKG]; Z79.899 Other long term (current) drug therapy; Z79.4 Long term (current) use of insulin
CPT/HCPCS: 36415; 71046; 71260; 80053; 82947; 83690; 85025; 85610; 93005; 99284; Q9967

== ENCOUNTER → 2024-03-10 22:17 | Outpatient (BNV) | payer MEDICARE, MEDICAID, SELFPAY | PROVIDERS: Emergency Provider Emergency Medicine; PCP Internal Medicine; Visit Provider Internal Medicine Cardiovascular Disease | DX: R52 Pain, unspecified (principal) | CPT/HCPCS: 93010 ==